=== PATIENT | male | born 1995 | race Caucasian/White ===

== ENCOUNTER 2021-07-17 18:10 | Emergency (ER) | payer OTHER ==
[~2021-07-17] VITALS: Ht 182.9 cm; Wt 104.5 kg
[2021-07-17 23:03] LABS: BASO % 0.2 % (0.0-1.0); EOS # 0.1 10^3/uL (0.0-0.5); EOS % 0.4 % (0.0-3.0); HEMATOCRIT 44.7 % (42.0-52.0); HEMOGLOBIN 15.7 g/dl (13.5-17.5); LYMPH # 3.2 10^3/uL (1.5-5.0); LYMPH % 24.5 % (24.0-44.0); MEAN CORPUSCULAR HEMOGLOBIN 33.9 pg (27.0-33.0); MEAN CORPUSCULAR HGB CONC 35.1 g/dl (32.0-36.5); MEAN CORPUSCULAR VOLUME 96.5 fl (80.0-96.0); MONO # 1.1 10^3/uL (0.0-0.8); MONO % 8.8 % (2.0-8.0); NEUTROPHILS # 8.5 10^3/uL (1.5-8.5); NEUTROPHILS % 65.6 % (36.0-66.0); PLATELET COUNT, AUTOMATED 282 10^3/uL (150-450); RED BLOOD COUNT 4.63 10^6/uL (4.30-6.10); WHITE BLOOD COUNT 12.9 10^3/uL (4.0-10.0)
[2021-07-17 23:50] LABS: ALBUMIN 3.9 GM/DL (3.2-5.2); BILIRUBIN,DIRECT 0.1 MG/DL (0.0-0.2); BILIRUBIN,TOTAL 0.5 MG/DL (0.2-1.0); TOTAL PROTEIN 7.5 GM/DL (6.4-8.2)
[2021-07-17] MEDS ORDERED: FLOM0.4C39 PO (23:55)
[2021-07-17] MEDS ORDERED: BACT800T5 PO (23:56)
[2021-07-18] MEDS ORDERED: BACTRIM 160MG/800MG DS TAB PO ONE
[2021-07-18 00:22] VITALS: BP 163/93
== END 2021-07-18 00:30 | disposition home or self-care (01) ==
LOC: M ED 18:10
DX: N39.0 Urinary tract infection, site not specified (principal); I10 Essential (primary) hypertension; F17.210 Nicotine dependence, cigarettes, uncomplicated